=== PATIENT | male | born 1990 | race African-American/Black ===

== ENCOUNTER 2020-08-22 01:21 | Emergency (ER) | payer MEDICAID ==
[~2020-08-22] VITALS: Ht 172.7 cm; Wt 93.9 kg
[~2020-08-22 01:21] MED LIST: BACTRIM DS TAB1 EAC1 ORAL; HYDROCODON-ACE1 EA15 ORAL; NKM
[2020-08-22] MEDS ORDERED: VIBRAMYCIN100 MG ORAL (01:43)
--- NOTE | 2020-08-22 01:44 | NUR ---
ED Nurse Note: Pt ambulated to Ed from home c/o burning the the shaft of his penis for 2 days. Pt is A&Ox4, VSS
[2020-08-22] MEDS ORDERED: Lidocaine 1% MPF 10mg/ml 5ml INJ ONE (01:45)
--- NOTE | 2020-08-22 01:46 | Emergency Room Report ---
History of Present Illness General Chief Complaint: Male Urogenital Problems Source: Patient Present Illness HPI Patient is a 29-year-old male presents for increased burning sensation with urination. Onset of symptoms approximately 2 days ago. Patient reports having recent unprotected intercourse with states he did receive oral sex. Subsequently began having increased burning sensation. Denies any hematuria. Denies any flank pain or back pain. Denies having a testicular pain or swelling. 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 COVID-19 Screening: Negative COVID-19 COVID-19 Testing Source: CHIEF OF POLICE 08/16/2020 Patient History Past Medical History: see triage record Reviewed Nursing Documentation: PMH: Agreed; PSxH: Agreed Nursing Documentation-PMH Past Medical History: No Stated History Review of Systems All Other Systems: negative except mentioned in HPI Physical Exam Vital Signs Date Time Temp Pulse Resp B/P (MAP) Pulse Ox O2 Delivery O2 Flow Rate FiO2 08/22/20 01:21 98.1 70 16 134/81 (98) 98 Room Air Sp02 EP Interpretation: reviewed, normal General Appearance: normal inspection, well appearing, no apparent distress, alert, GCS 15 Head: atraumatic ENT: normal ENT inspection, hearing grossly normal, normal voice Neck: normal inspection, full range of motion, supple, no bony tend Respiratory: normal inspection, lungs clear, normal breath sounds, no respiratory distress, no retraction, no wheezing Cardiovascular #1: regular rate, rhythm, no edema Gastrointestinal: normal inspection, normal bowel sounds, non tender, soft, no guarding, no hernia Genitourinary: no CVA tenderness Musculoskeletal: normal inspection, back normal, normal range of motion Neurologic: alert, motor strength/tone normal, 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 Differential diagnosis include was not limited to urethritis, urethral stone, urinary tract infection among others. Patient has a benign exam and does not appear to require any imaging or laboratory testing at this time. Given patient's recent unprotected intercourse patient will be empirically treated for gonorrhea chlamydia. Patient advised outpatient STD testing. He is advised to continue to use condoms. Was advised to follow-up with primary care physician for recheck. The patient is advised to follow up with primary care doctor in 1-2 days. Patient is advised to return if any worsening condition or if any changes in status that are concerning. This report is dictated with [employer] rags laborer software which may occasionally lead to discrepancies related to use of this software. Last Vital Signs Date Time Temp Pulse Resp B/P (MAP) Pulse Ox O2 Delivery O2 Flow Rate FiO2 08/22/20 01:21 98.1 70 16 134/81 (98) 98 Room Air Status: improved Disposition: HOME, SELF-CARE Condition: Stable Scripts Doxycycline Hyclate* (VIBRAMYCIN*) 100 Mg Capsule 100 MG ORAL EVERY 12 HOURS, #14 CAP 0 Refills Prov: Reddy Richardson MD 08/22/20 Patient Instructions: Urethritis, Adult Additional Instructions: Follow up with your doctor for testing for possible sexually transmitted infection. Return if worse. Reddy Richardson MD Aug 22, 2020 01:46
[2020-08-22 01:50] VITALS: BP 134/81
[2020-08-22 01:50] LABS: APPEARANCE,URINE CLEAR; BILIRUBIN, URINE NEGATIVE (NEGATIVE); COLOR,URINE PALE YELLOW; GLUCOSE, URINE (UA) NEGATIVE (NEGATIVE); KETONES,URINE NEGATIVE (NEGATIVE); LEUKOCYTE ESTERASE ,URINE NEGATIVE (NEGATIVE); NITRITE,URINE NEGATIVE (NEGATIVE); PH,URINE 7 (4.5-8.0); PROTEIN,URINE NEGATIVE (NEGATIVE); UROBILINOGEN,URINE NORMAL MG/DL (0.0-1.0)
--- NOTE | 2020-08-22 01:50 | NUR ---
ER DISCHARGE NOTE: Patient is cleared to be discharged per ERMD, pt is aox4, on room air, with stable vital signs. pt was given dc and prescription instructions, pt was able to verbalize understanding, pt id band removed. pt is able to ambulate with steady gait. pt took all belongings.
== END 2020-08-22 01:50 | disposition home or self-care (01) ==
LOC: EMR 01:38
DX: N34.2 Other urethritis (principal)
CPT/HCPCS: 81003; 96372; 99283; J0696

== ENCOUNTER 2020-09-29 12:57 | Emergency (ER) | payer MEDICAID ==
[~2020-09-29] VITALS: Ht 172.7 cm; Wt 93.0 kg
[~2020-09-29 12:57] MED LIST changes: +VIBRAMYCIN100 MG ORAL
--- NOTE | 2020-09-29 13:29 | Emergency Room Report ---
History of Present Illness General Chief Complaint: Laceration Source: Patient Present Illness HPI 29-year-old male with no significant past medical history here complaining of a laceration that happened 20 minutes prior to arrival. Patient reports that he was cutting some vegetables at home and he accidentally cut his finger. Minimal bleeding noted. Patient has range of motion of the affected side, and is neurovascularly intact. Patient has full strength. Has not taken medication for symptom relief. Is up-to-date with tetanus shot. Denies fever chills, chest pain, shortness of breath, no other associate symptoms. 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 COVID-19 Screening: Negative COVID-19 COVID-19 Testing Source: CLIENT SUPPORT PROFESSIONAL Patient History Past Medical History: see triage record Past Surgical History: none Pertinent Family History: none Immunizations: UTD Reviewed Nursing Documentation: PMH: Agreed; PSxH: Agreed Nursing Documentation-PMH Past Medical History: No Stated History Review of Systems All Other Systems: negative except mentioned in HPI Physical Exam Vital Signs Date Time Temp Pulse Resp B/P (MAP) Pulse Ox O2 Delivery O2 Flow Rate FiO2 09/29/20 13:13 98.2 81 14 144/75 (98) 99 Room Air Sp02 EP Interpretation: reviewed, normal General Appearance: no apparent distress, alert, GCS 15, non-toxic Head: normocephalic, atraumatic Eyes: bilateral eye normal inspection, bilateral eye PERRL ENT: hearing grossly normal, normal pharynx, no angioedema, normal voice Neck: supple Respiratory: normal inspection Cardiovascular #1: regular rate, rhythm Cardiovascular #2: 2+ radial (R), 2+ radial (L) Gastrointestinal: normal bowel sounds, non tender, soft, non-distended, no guarding, no rebound Genitourinary: no CVA tenderness Musculoskeletal: back normal, other - Neurovascularly intact Neurologic: alert, motor strength/tone normal, oriented x3, sensory intact, responsive, speech normal Psychiatric: judgement/insight normal Skin: laceration - Laceration left index finger Lymphatic: no adenopathy Procedures Laceration/Wound Repair Laceration/Wound Repair : Consent: Verbal Wound Location: upper extremity - Left index finger Wound's Depth, Shape: superficial Wound Length (cm): 1 Betadine Prep?: Yes Wound Debrided: None Wound Repaired With: Dermabond Sterile Dressing Applied?: Yes Splint Applied?: Yes Type of Splint Applied: Medical Patient Tolerated: Well Complications: None Medical Decision Making PA Attestation All my diagnosis and treatment plans were reviewed ad discussed with my supervising physician Dr. Rosario Diagnostic Impression: Primary Impression: Finger laceration ER Course 29-year-old male with no significant past medical history here complaining of a laceration that happened 20 minutes prior to arrival. Patient reports that he was cutting some vegetables at home and he accidentally cut his finger. Minimal bleeding noted. Patient has range of motion of the affected side, and is neurovascularly intact. Patient has full strength. Has not taken medication for symptom relief. Is up-to-date with tetanus shot. Denies fever chills, chest pain, shortness of breath, no other associate symptoms. Ddx considered but are not limited to : Superficial laceration, deep laceration, tendon involvement with laceration, laceration with foreign body Vital signs: are WNL, pt. is afebrile H&PE are most consistent with: Superficial laceration left index finger ORDERS: Augmentin, Motrin ED INTERVENTIONS: Wound closure, dressed, splint applied DISCHARGE: At this time pt. is stable for d/c to home. Will provide printed patient care instructions, and any necessary prescriptions. Care plan and follow up instructions have been discussed with the patient prior to discharge. Patient take medication as directed, follow primary care provider, if worsening symptoms return to the emergency room Last Vital Signs Date Time Temp Pulse Resp B/P (MAP) Pulse Ox O2 Delivery O2 Flow Rate FiO2 09/29/20 13:13 98.2 81 14 144/75 (98) 99 Room Air Disposition: HOME, SELF-CARE Condition: Stable Scripts Ibuprofen* (MOTRIN*) 600 Mg Tablet 600 MG ORAL Q6H PRN for For Pain, #30 TAB 0 Refills Prov: Henri Lindsey 09/29/20 Amoxicillin/Potassium Clav 875-125* (AUGMENTIN 875-125 TABLET*) 1 Each Tablet 1 TAB ORAL TWICE A DAY for 14 Days, TAB Prov: Henri Lindsey 09/29/20 Patient Instructions: Laceration Care, Adult Additional Instructions: Take medication as directed, follow primary care provider, if worsening symptoms return to the emergency room Henri Lindsey Sep 29, 2020 13:29
[2020-09-29] MEDS ORDERED: Ketorolac 30mg Inj IM ONE (13:30)
--- NOTE | 2020-09-29 13:40 | NUR ---
ED Nurse Note: Irrigated lac, laboratory technician splinted finger.
--- NOTE | 2020-09-29 13:41 | NUR ---
ED Nurse Note: Pt walked in from home with a steady gait, Axox4, breathing is even and unlabored on RA, Vital signs stable as docmented. Pt states that he was cooking and cut his finger on a knife. the bleeding was controlled with pressure at home. no signs of distress noted.
[2020-09-29] MEDS ORDERED: IBUPROFEN600 M1 ORAL (13:45)
[2020-09-29] MEDS ORDERED: AUGMENTIN 875-1 EAC1 ORAL (13:45)
[2020-09-29 13:46] VITALS: BP 144/75
[2020-09-29 13:55] VITALS: BP 120/80
--- NOTE | 2020-09-29 14:33 | NUR ---
ER DISCHARGE NOTE: Patient is cleared to be discharged per ERMD, pt is aox4, on room air, with stable vital signs. pt was given dc and prescription instructions, pt was able to verbalize understanding, pt id band removed without complications. pt is able to ambulate with steady gait. pt took all belongings.
== END 2020-09-29 13:55 | disposition home or self-care (01) ==
LOC: EMR 13:30
DX: S61.211A Laceration without foreign body of left index finger without damage to nail, initial encounter (principal); W26.0XXA Contact with knife, initial encounter; Y93.G3 Activity, cooking and baking; Y92.010 Kitchen of single-family (private) house as the place of occurrence of the external cause
CPT/HCPCS: 12001; 96372; J1885; Z7502; 99283

== ENCOUNTER 2020-10-01 01:05 | Emergency (ER) | payer MEDICAID ==
[~2020-10-01] VITALS: Ht 172.7 cm; Wt 94.3 kg
[~2020-10-01 01:05] MED LIST changes: +AUGMENTIN 875-1 EAC1 ORAL; +IBUPROFEN600 M1 ORAL
[2020-10-01 01:20] VITALS: BP 137/95
--- NOTE | 2020-10-01 01:20 | NUR ---
Nurse Note: Pt walked in c/o LT hand third digit lac since 09/30. Pt stated he was treated at a facility, used derambond on lac. Pt stated he took off the splint and the lac opened up again on 10/01. Slight blood noted on wound.
--- NOTE | 2020-10-01 01:34 | Emergency Room Report ---
History of Present Illness General Chief Complaint: Laceration Source: Patient Present Illness HPI Patient is a 29-year-old male who presents for increased left-sided finger patient had recent injury where he accidentally cut his finger with a knife and had wound repaired with tissue glue. Reports having onset of recent bleeding. Denies any other current complaints. Patient had not been having any other lo cations of injury. [id number]. Patient is currently taking antibiotics. 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 Patient History Past Medical History: see triage record Reviewed Nursing Documentation: PMH: Agreed; PSxH: Agreed Review of Systems All Other Systems: negative except mentioned in HPI Physical Exam Vital Signs Date Time Temp Pulse Resp B/P (MAP) Pulse Ox O2 Delivery O2 Flow Rate FiO2 10/01/20 01:17 98.4 60 16 137/95 (109) 98 Room Air General Appearance: well appearing, no apparent distress, alert, GCS 15 Head: normocephalic, atraumatic ENT: hearing grossly normal, normal voice Neck: full range of motion, supple Respiratory: no respiratory distress, speaking full sentences Cardiovascular #1: normal inspection Neurologic: alert, motor strength/tone normal, 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 Partially healed Medical Decision Making Diagnostic Impression: Primary Impression: Visit for wound check ER Course Patient presented for wound check. Differential diagnosis include was not limited to healing laceration, wound infection, among others. Patient has a benign exam and does not appear to require any imaging or laboratory testing at this time. Patient wound appears to be healing well. There is a small area where there is trace amount of bleeding. Wound was dressed with sterile gauze. Patient was advised to have wound checked again in 2 days. He is to return if worse. This medical record is generated with [employer] hand cell tuber software. There may be some hand cell tuber discrepancies related to use of this software Last Vital Signs Date Time Temp Pulse Resp B/P (MAP) Pulse Ox O2 Delivery O2 Flow Rate FiO2 10/01/20 01:17 98.4 60 16 137/95 (109) 98 Room Air Status: improved Disposition: HOME, SELF-CARE Condition: Stable Referrals: NOT CHOSEN IPA/,REFERRING (PCP) Patient Instructions: Tissue Adhesive Wound Care Additional Instructions: Follow up with your doctor for recheck. Return if worse. Reddy Richardson MD Oct 01, 2020 01:34
[2020-10-01 01:35] VITALS: BP 137/95
--- NOTE | 2020-10-01 01:35 | NUR ---
ED Nurse Note: Wound cleaned and dressed. Pt cleared by health care Provider for discharge. DC instructions/prescription was given and explained to pt and verbalized understanding of teachings. Instructed pt to follow up with primary care physcian within one week. All medical deviecs such as ID band removed. Pt is AAO x4, ambulatory and left with all personal belongings.
== END 2020-10-01 01:35 | disposition home or self-care (01) ==
LOC: EMR 01:27
DX: S61.213D Laceration without foreign body of left middle finger without damage to nail, subsequent encounter (principal); W26.0XXD Contact with knife, subsequent encounter
CPT/HCPCS: 99281